=== PATIENT | female | born 1970 | race Caucasian/White ===

== ENCOUNTER 2025-04-17 13:10 | Outpatient (AMB) | payer BC, SELFPAY ==
--- NOTE | 2025-04-17 13:42 | XR_ITS ---
Examination: Bilateral knees 2 views Right lateral knee left lateral knee 2 views Right axial left axial knees 2 views TECHNIQUE: Bilateral AP knees standing single view, bilateral PA knees standing single view flexion Standing right lateral knee left lateral knee 2 views Right axial knee left axial knee 2 views total 6 views Date and time: April 17, 2025 1351 hours INDICATIONS: Bilateral knee pain, right knee replacement 6 months ago left meniscus repair 5 years ago FINDINGS: Moderate osteopenia Total right knee arthroplasty. Satisfactory alignment. No loosening of the prosthetic components Advanced narrowing medial joint space left knee Moderate osteoarthritis lateral joint space left knee Moderate to advanced osteoarthritis lateral patellofemoral joint IMPRESSION: Total right knee arthroplasty with satisfactory alignment Advanced narrowing medial joint space left knee Moderate osteoarthritis lateral joint space left knee Moderate to advanced osteoarthritis left lateral patellofemoral joint
[2025-04-17 13:44] VITALS: BP 134/82; PULSE 81; RESP 18; TEMP 36.3; O2SAT 97; BMI 26.3
--- NOTE | 2025-04-17 13:44 | ORTHONT_ITS ---
Vital signs 04/17/25 13:44 04/17/25 13:49 Height 1.65 m Height Method Stated Weight 71.724 kg Weight Measurement Method Standing Scale BMI 26.3 BP 134/82 H 134/82 H Blood Pressure Source Automatic Cuff Blood Pressure Location Right Upper Arm Position Sitting Respiration 18 18 Pulse 81 81 Pulse Source Monitor Temp 97.3 F 97.3 F Temp Source Temporal Artery Scan Pulse Oximetry (%) 97 97 Oxygen Delivery Method Room Air Med/Allergies Allergies & Medications Allergies No Known Allergies Allergy (Verified 04/17/25 13:48) Medication Reconciliation levothyroxine 25 mcg capsule 25 mcg PO QDAY 07/23/23 [History Confirmed 04/17/25] meloxicam 7.5 mg tablet 7.5 mg PO QDAY #45 tabs 04/17/25 [Rx] Office Procedures GNS Level of Care Nursing/Assessment Patient Status: Established Patient Nursing Assessment/Reassesment: Medication Reconciliation, Update PMH in EMR and Vital Signs Coordination of Care: Complex Care and Chronic Disease 1-5, Education Complex Pt/Fam, Consent,records obtained, informed consent, Lab and Imaging orders, Results/Orders obtained and Staff clarify orders Established Patient Charge Established Patient Point Assignment: 110 Established Patient Point Charge: EP Level 3 (80-115) MA Intake Visit Data Collection New Patient or Established: Established Patient (seen at [facility] within 3 years) Reason for Visit:: LEFT KNEE PAIN Seen by Clinical Staff ONLY (RN/MA): No Verbal consent obtained for Telemed visit?: No Hospitality Job Titles Required: No PCP or OBGYN visit in last 3 months: Yes Hx Now: No Do You Feel Safe at Home: Yes Authorities Contacted: N/A Questionairres Past Medical History Past Medical History Have you ever been diagnosed with any of the following: Respiratory Problems Smoking: No Smoking Exposure: No Genital/Urinary Problems Chronic Kidney Disease: No Renal Disease: No Kidney Stones: No Polycystic Kidney Disease: No Neurogenic Bladder: No Inguinal Hernia: No Dialysis: No Reproductive Problems Breast Cancer: No Endometriosis: No Fibroids: No Genital Herpes: No Gonorrhea: No Pelvic Inflammatory Disease: No Polycystic Ovarian Syndrome: No Previous Pregnancies: No Syphilis: No Uterine Prolapse: No Musculoskeletal Problems Muscular Dystrophy: No Myasthenia Gravis: No Marfan's Syndrome: No Bone Cancer: No Arthritis: Yes Rheumatoid Arthritis: No Osteoporosis: No Degenerative Disk Disease: No Gout: No Scoliosis: No Carpal Tunnel Syndrome: No Fibromyalgia: No Fractures: No Degenerative Joint Disease: No Osteomyelitis: No Poliovirus: No Head,Eye,Nose,Throat Problems Cataracts: No Glaucoma: No Blind: No Retinal Detachment: No Macular Degeneration: No Chronic Ear Infections: No Deafness: No Eye Prosthesis: No Endocrine Problems Diabetes Mellitus Type 1: No Diabetes Mellitus Type 2: No Hypoglycemia: No [place]'s Syndrome: No Virgil's Disease: No Hyperthyroidism: No Hypothyroidism: Yes Thyroid Cancer: No Parathyroid Disease: No Pituitary Disease: No Systemic Lupus Erythematosus: No Syndrome of Inappropriate Antidiuretic Hormone: No Adrenal Disease: No Graves' Disease: No Blood Problems Anemia: No Leukemia: No Hemophilia: No Thalassemia: No Sickle Cell Disease: No Clotting Problems: No Psychologic Problems Schizophrenia: No Recreational Drug Use: No Bipolar Disorder: No Depression: No Anxiety: No Behavior Problems: No Self-Mutilation: No Attention Deficit Disorder: No Attention Deficit Hyperactivity Disorder: No Depression: No Post Traumatic Stress Disorder: No Eating Disorder: No Other Problems Hospitalization: No Autoimmune Disease: No Down Syndrome: No Autism: No Developmental Delay: No Cosmetic Surgery: No Shingles: No Falls: No Blood Transfusions: No Blood Transfusion Reaction: No Anesthesia Reactions: No Organ Transplant: No Chemotherapy: No Radiation Therapy: No Hyperbaric Therapy: No MRSA: No VRSA: No Vancomycin-Resistant Enterococci: No Human Immunodeficiency Virus (HIV): No Chicken Pox: No Measles: No Mumps: No Rubella ([place] Measles): No Pertussis: No Klebsiella Pneumoniae Carbapenemase Producing Bacteria: No Clostridium Difficile: No Hepatitis A: No Hepatitis B: No Hepatitis C: No Communicable Disease: No Cancer: No Cervical Cancer: No Lung Cancer: No Ovarian Cancer: No Surgical History Angioplasty: No Appendectomy: No Bariatric Surgery: No Breast Surgery: No Cancer Surgery: No Carotid Endarterectomy: No Cholecystectomy: No Colectomy: No Colostomy: No Coronary Artery Bypass Graft: No Valve Replacement: No Herniorrhaphy: No Total Hip Replacement: No Total Knee Replacement: Yes Hysterectomy: No Pacemaker: No Sinus Surgery: No Splenectomy: No TAHBSO-Total Abdominal Hysterectomy: No Thyroidectomy: No Ureter Stent: No Subjective Visit Visit for: follow up visit and knee Immunization / Flu Flu Vaccine in the Last 12 Months: No Flu Vaccine Exclusion Criteria: No Exclusion Criteria History of Present Illness Chief complaint: LEFT KNEE PAIN Recently status post right total knee replacement with me and is doing well. She reports the left knee has been bothering her recently. Personal History Occupation: [employer] Red flag PMH: none BMI Counceling provided: No Pain Pain level (0-10): 9 Pain duration: ALL DAY Pain location: inside (medial) Pain quality: sharp, dull, aching and shocking Pain timing: night, increases with activity and stairs Associated signs & symptoms: weakness and stiffness Ambulatory data Ambulatory device: none Treatments Improvement with previous injections: No Improvement with PT: No Improvement with NSAIDS: no Review of Systems Review of Systems: All systems negative unless otherwise noted in HPI.
--- NOTE | 2025-04-17 13:46 | PD.ORTHCLVIS ---
Vital signs 04/17/25 13:44 04/17/25 13:49 Height 1.65 m Height Method Stated Weight 71.724 kg Weight Measurement Method Standing Scale BMI 26.3 BP 134/82 H 134/82 H Blood Pressure Source Automatic Cuff Blood Pressure Location Right Upper Arm Position Sitting Respiration 18 18 Pulse 81 81 Pulse Source Monitor Temp 97.3 F 97.3 F Temp Source Temporal Artery Scan Pulse Oximetry (%) 97 97 Oxygen Delivery Method Room Air Med/Allergies Allergies & Medications Allergies No Known Allergies Allergy (Verified 04/17/25 13:48) Medication Reconciliation levothyroxine 25 mcg capsule 25 mcg PO QDAY 07/23/23 [History Confirmed 04/17/25] meloxicam 7.5 mg tablet 7.5 mg PO QDAY #45 tabs 04/17/25 [Rx] Exam Exam Patient is in no acute distress and is cooperative with the examination today. Patient has a normal mood and affect. Breathing is nonlabored. In no respiratory distress. Bilateral extremities were evaluated and demonstrates sensation intact to light touch. Palpable pedal pulses are present. No significant edema is present. Right knee incision is clean dry intact. Range of motion is 0 to 110 degrees. X-rays demonstrate a cementless total knee replacement in good alignment position Assessment and Plan Problem List (1) Arthritis of both knees: Status: Acute Plan: Patient is doing well status post right total knee replacement. She is doing well status post right total knee replacement. She reports the left knee has been bothering her. She has left knee arthritis of moderate to severe severity. She would like a cortisone injection today Recommend knee cortisone injection as patient would like to proceed with conservative treatment at this time. The risks and benefits of the procedure were reviewed with the patient and patient gave verbal consent to continue with the procedure. Procedure: performed by Dr. Pinto Using sterile technique the left knee was thoroughly prepped with alcohol, and approximately 1 cc of Kenalog 40 mg/mL and 4 cc of 1% lidocaine was injected without resistance into the medial tibial femoral joint space. The patient tolerated the procedure. (2) Status post total right knee replacement: Status: Acute Office Procedures GNS Level of Care Nursing/Assessment Patient Status: Established Patient Nursing Assessment/Reassesment: Medication Reconciliation, Update PMH in EMR and Vital Signs Coordination of Care: Complex Care and Chronic Disease 1-5, Education Complex Pt/Fam, Consent,records obtained, informed consent, Lab and Imaging orders, Results/Orders obtained and Staff clarify orders Established Patient Charge Established Patient Point Assignment: 110 Established Patient Point Charge: EP Level 3 (80-115) Surgical Proc/IM SQ injection Major Surgical Procedure: Yes (KNEE INJECTION) Medication Given Medication Given Medication Given: Yes Route: Infiitration Medication Given Medication Given Medication Given: Yes Route: Infiitration Office Meds Xylocaine 10 mg/mL (1 %) injection solution Performing Provider: Avi Pinto MD Performing Location: [facility] Administered by: Avi Pinto MD on 04/17/25 13:10 Dose Route Admin Location Dispensed Lot Number Expiration Date ND [employer] 40 mL Infiltration 40 mL triamcinolone acetonide 40 mg/mL suspension for injection Performing Provider: Avi Pinto MD Performing Location: [facility] Administered by: Avi Pinto MD on 04/17/25 13:10 Dose Route Admin Location Dispensed Lot Number Expiration Date ND [employer] 80 mg intra-articular 2 mL Questionairres Past Medical History Past Medical History Have you ever been diagnosed with any of the following: Respiratory Problems Smoking: No Smoking Exposure: No Subjective History of Present Illness Chief complaint: Left knee pain Recently status post right total knee replacement with me and is doing well. She reports the left knee has been bothering her recently. Review of Systems Review of Systems: All systems negative unless otherwise noted in HPI.
[2025-04-17 13:49] VITALS: BP 134/82; PULSE 81; RESP 18; TEMP 36.3; O2SAT 97
== END 2025-04-17 14:11 | disposition home or self-care (01) ==
LOC: HODSRG 13:10
PROVIDERS: Supervising Provider Orthopaedic Surgery Adult Reconstructive Orthopaedic Surgery; Visit Provider Orthopaedic Surgery Adult Reconstructive Orthopaedic Surgery
DX: M17.0 Bilateral primary osteoarthritis of knee (principal); Z96.651 Presence of right artificial knee joint
CPT/HCPCS: 20610; 73564; 99213; J3301; J3490; G0463